=== PATIENT | male | born 1990 | race Caucasian/White ===

== ENCOUNTER → 2017-12-29 | Outpatient (CLI) | payer OTHER ==
[2013-07-14 19:42] VITALS: BP 131/61
[~2017-12-29] MED LIST: NO HOME MEDICATIONS; PREDNISONE10 MG PO
[2017-12-29 15:53] LABS: ALBUMIN 4.5 g/dL (3.5-5.0); CALCIUM 9.5 mg/dL (8.4-10.2); POTASSIUM 4.4 mmol/L (3.6-5.0); TOTAL BILIRUBIN 0.7 mg/dL (0.2-1.3); TOTAL PROTEIN 7.4 g/dL (6.3-8.2)
== END ==
LOC: LAB 14:56
PROVIDERS: Family Medicine
DX: B35.1 Tinea unguium (principal); R61 Generalized hyperhidrosis; L30.9 Dermatitis, unspecified

== ENCOUNTER → 2017-12-30 | Outpatient (CLI) | payer OTHER ==
[2013-07-14 19:42] VITALS: BP 131/61
[2017-12-30 13:19] LABS: EOS # 0.2 (0.04-0.40); HEMATOCRIT 44.6 % (42.0-52.0); HEMOGLOBIN 14.9 g/dL (13.5-18.0); LYMPH# 1.8 (1.50-4.00); MEAN CELL VOLUME 94 fl (78-100); MEAN CORPUSCULAR HEMOGLOBIN 32 pg (27-31); MEAN CORPUSCULAR HGB CONC 33 g/dL (33-37); MEAN PLATELET VOLUME 10.8 fl (7.4-10.4); PLATELET COUNT 235 K/mm3 (130-400); RED BLOOD COUNT 4.73 M/mm3 (4.20-5.60); RED CELL DISTRIBUTION WIDTH 13.5 % (11.5-14.5); WHITE BLOOD COUNT 8.1 K/mm3 (4.8-10.8)
== END ==
LOC: LAB 09:36
PROVIDERS: Family Medicine
DX: L30.9 Dermatitis, unspecified (principal); B35.1 Tinea unguium; R61 Generalized hyperhidrosis